=== PATIENT | male | born 1935 | race Caucasian/White ===

== ENCOUNTER → 2017-03-12 | Outpatient (CLI) | payer OTHER, MEDICARE ==
[~2017-03-12] MED LIST: AMBIEN 5 MG TABL5 M1 PO; BENAZEPRIL-HCT1 EA10 PO; COREG25 MG PO; COREG3.125 MG PO; COUMADIN 5 MG TA5 M1 PO; COUMADIN7.5 MG PO; DITROPAN XL5 M1 PO; ELIQUIS5 MG PO; FLECAINIDE ACE100 MG PO; FLOMAX0.4 MG PO; HYDRALAZINE 2525 MG PO; HYDROCODONE-AP1 EAC6 PO; KLOR-CON 1010 MEQ PO; LASIX 40 MG TAB40 M2 PO; NEURONTIN600 MG PO; SINGULAIR 10 MG10 M1 PO; TRAMADOL 50 MG50 MG PO; TRAZODONE HCL100 MG PO; VITAMIN D-32000 UNIT PO; VITAMIN D31000 UNI2 PO; XARELTO20 MG PO; ZOCOR20 MG PO; ZOLOFT100 MG PO
== END ==
LOC: HYPER 06:50
DX: S80.811A Abrasion, right lower leg, initial encounter (principal); L97.821 Non-pressure chronic ulcer of other part of left lower leg limited to breakdown of skin; R60.9 Edema, unspecified; I48.91 Unspecified atrial fibrillation; I11.0 Hypertensive heart disease with heart failure; I50.9 Heart failure, unspecified; J43.9 Emphysema, unspecified; F32.9 Major depressive disorder, single episode, unspecified; I89.0 Lymphedema, not elsewhere classified; M19.90 Unspecified osteoarthritis, unspecified site; F17.210 Nicotine dependence, cigarettes, uncomplicated; Z86.718 Personal history of other venous thrombosis and embolism; X58.XXXA Exposure to other specified factors, initial encounter; Y93.89 Activity, other specified; Y92.89 Other specified places as the place of occurrence of the external cause; Y99.8 Other external cause status